=== PATIENT | male | born 1990 | race Caucasian/White ===

== ENCOUNTER 2024-07-08 19:00 | Emergency (ER) | payer MEDICAID ==
[~2024-07-08] VITALS: Ht 170.2 cm; Wt 55.8 kg
[~2024-07-08 19:00] MED LIST: NO HOME MEDS
[2024-07-08 19:03] VITALS: O2SAT 99
[2024-07-08 21:05] VITALS: BP 116/74; PULSE 77; RESP 16; TEMP 98.2
--- NOTE | 2024-07-08 21:39 | Physician Documentation ---
History of Present Illness ~ Chief Complaint: Back Pain Stated Complaint: BACK PAIN Time Seen by MD: 20:57 Primary Medical Doctor: None HPI This is a 34-year-old male who presents with four days of thoracolumbar back pain radiating across his entire mid back this with sitting up and movement, patient reports no fever, no new weakness or numbness in extremities, no saddle paresthesias, no loss of bowel or bladder control. Patient reports no history of IV drug use, tuberculosis, or cancer. Patient reports no other acute symptoms or concerns. Medication Reconciliation Allergies: Coded Allergies: Penicillins (Verified Allergy, Unknown, 08/15/13) Scheduled Ibuprofen (Ibuprofen), 1 TAB PO Q8H Miscellaneous Medications Home Med List (No Home Medications), (Reported) Past Medical History Past Medical History: Schizophrenia Past Surgical History: no surgical history Alcohol Use: None Drug Use: marijuana, methamphetamine Lives with: Alone Lives In: Homeless Review of Systems ROS Thoracolumbar back pain as stated above in the HPI, otherwise all systems are reviewed and negative. Physical Exam Physical Exam Vital Signs: Temperature: 98.2, Source: Oral, Heart Rate: 77, Respiratory Rate: 16, BP: 116/74, Pulse Oximetry: 99, Weight: 55.800 Oxygen Flow Rate: 0 Physical Exam VITALS: Reviewed and as above. GENERAL: Alert, nontoxic appearing, no apparent distress. RESPIRATORY: No increased work of breathing, no respiratory distress, speaking in full clear sentences BACK: No CVA tenderness to percussion, the thoracolumbar back is mildly tender to palpation without focal central spinal tenderness, no step-offs, no crepitus Progress Results/Orders Results/Orders Completed Orders - DES KLINE TELEMETRY RN Ibuprofen Tablet (Motrin Tablet) (07/08/24 21:40) Vital Signs 07/08/24 07/08/24 19:03 21:05 Temp 98.2 98.2 Pulse 90 77 Resp 18 16 B/P (MAP) 113/80 116/74 (88) Pulse Ox 99 O2 Flow Rate 0 0 Medical Decision Making Findings This 34-year-old male presented with four days of thoracolumbar back pain w ithout known injury, it was reassuring patient reported no red flags including no history of IV drug use, no history of cancer no history of tuberculosis, and no recent history of fever along with no new weakness or numbness in extremities, no loss of bowel or bladder control, and no saddle paresthesias. Patient offered and declined Toradol injection and lidocaine patches for back pain, patient was medicated with ibuprofen for back pain. Remainder of physical exam was benign patient was otherwise well-appearing, hemodynamically stable and appropriate for outpatient follow up. Return to care precautions were discussed with the patient who verbalized understanding. Differential Dx:Considerations: Include: DJD, Fracture, Musculoskeletal pain, Pyelonephritis, Strain, Urinary obstruction, Urolithiasis, Other (Cauda equina) Departure Disposition: HOME / SELF CARE / HOMELESS Impression: Primary Impression: Thoracolumbar back pain Condition: Improved Discharge Instructions: Acute Back Pain, Adult Additional Instructions: Please use the prescribed ibuprofen as needed for back pain, warm compresses may help, stretching may help. Please follow up with your primary care provider in the next few days. Please return to the emergency department for any new or worsening concerning symptoms including but not limited to new weakness or numbness in your legs, or loss of bowel or bladder control. Referrals: NO PRIMARY CARE PROVIDER (PCP) Prescriptions Ibuprofen (Ibuprofen) 800 Mg Tablet 1 TAB PO Q8H for pain for 10 Days, #30 TAB 0 Refills Prov: DES KLINE 07/08/24 Education Educated: Patient Educated regarding: diagnosis, treatment, prognosis, need for follow up Signature Scribe Signature: No scribe Attestation: The note accurately reflects work and decisions made by me.ARGELIA Scales 07/09/24 01:24 DES KLINE July 08, 2024 21:39
[2024-07-08] MEDS ORDERED: IBUP-1986 PO (21:40)
[2024-07-08] MEDS: ibuprofen tablet 400 MG TABLET PO ONE (22:03)
== END 2024-07-08 22:09 | disposition home or self-care (01) ==
LOC: ER 19:00
DX: M54.6 Pain in thoracic spine (principal); F20.9 Schizophrenia, unspecified; Z88.0 Allergy status to penicillin
CPT/HCPCS: 99283

== ENCOUNTER 2024-07-10 19:57 | Emergency (ER) | payer MEDICAID ==
[~2024-07-10] VITALS: Ht 170.2 cm; Wt 58.3 kg
[~2024-07-10 19:57] MED LIST changes: +IBUP-1986 PO
[2024-07-10 20:18] VITALS: BP 145/69; PULSE 98; RESP 15; TEMP 97.6; O2SAT 98
--- NOTE | 2024-07-10 22:58 | RADIOLOGY REPORT ---
Clinical History ANKLE PAIN RIGHT, REDNESS SWELLING, INFECTION ? Comparison None Technique: right ankle 4 views Without Contrast MYRON INTERIANO, [id number] Findings: Bones: No displaced fracture. Soft tissues: No swelling. No foreign body Joints: Visualized joints are within normal limits. Impression: 1. No acute fracture or dislocation. This report was electronically signed by Emery Osullivan MD on 07/10/2024 10:54:25 PM.
--- NOTE | 2024-07-11 00:28 | Physician Documentation ---
History of Present Illness ~ Chief Complaint: Ankle pain Stated Complaint: FOOT SWELLING Time Seen by MD: 00:24 Primary Medical Doctor: None HPI This 34-year-old male who presents with pain and swelling to his right ankle, patient reports he does not know if he injured it, patient reports pain has been present for approximately last three days, patient reports pain is worse when walking around. Patient is able to walk and bear weight on ankle though it is painful. Tetanus witin 5 years: Yes Medication Reconciliation Allergies: Coded Allergies: Penicillins (Verified Allergy, Unknown, 07/10/24) Scheduled Ibuprofen (Ibuprofen), 1 TAB PO Q8H Miscellaneous Medications Home Med List (No Home Medications), (Reported) Past Medical History Past Medical History: Schizophrenia Past Surgical History: no surgical history Alcohol Use: None Drug Use: marijuana, methamphetamine Lives with: Alone Lives In: Homeless Review of Systems ROS Right ankle pain as stated above in the HPI, otherwise all systems are reviewed and negative. Physical Exam Vital Signs: Temperature: 97.6, Source: Temporal, Heart Rate: 98, Respiratory Rate: 15, BP: 145/69, Pulse Oximetry: 98, Weight: 58.300 Physical Exam VITALS: Reviewed and as above. GENERAL: Alert, nontoxic appearing, no apparent distress. RESPIRATORY: No increased work of breathing, no respiratory distress, speaking in full clear sentences MUSCULOSKELETAL: Lateral and medial aspects of right ankle mildly swollen and tender to palpation, minimal erythema, no ecchymosis, no obvious deformity, pedal pulse intact, brisk capillary refill distal to injury SKIN: Abrasions to the skin of right ankle without induration, fluctuance or evidence of infection Progress Results/Orders Results/Orders Orders - DES KLINE Ortho Orders (07/11/24 00:28) Completed Orders - DES KLINE Ibuprofen Tablet (Motrin Tablet) (07/11/24 00:30) Vital Signs 07/10/24 20:18 Temp 97.6 Pulse 98 Resp 15 B/P (MAP) 145/69 Pulse Ox 98 EKG/XRAY/CT/US/VASC/MRI Bone/Soft Tissue X-Ray (Ext.) : Additional Comment Exam: ANKLE, COMPLETE(3VW MIN) Clinical History ANKLE PAIN RIGHT, REDNESS SWELLING, INFECTION ? Comparison None Technique: right ankle 4 views Without Contrast MYRON NITERIANO, [id number] Findings: Bones: No displaced fracture. Soft tissues: No swelling. No foreign body Joints: Visualized joints are within normal limits. Impression: 1. No acute fracture or dislocation. This report was electronically signed by Emery Garza MD on 07/10/2024 10:54:25 PM. Electronically Signed by:EMERY GARZA MD Date & Time: 07/10/242257 Dictated by: EMERY GARZA MD Dictation date and time: 07/10/242257 I have reviewed and agree with the radiology report. I have reviewed and interpreted the imaging as: No fracture or dislocation Medical Decision Making Findings This 34-year-old male presented with three days of right ankle pain and swelling without known injury to the area, pain was worse with ambulation though patient is able to ambulate and bear weight. While there were some abrasions and erythema to the area it was not significant and there was not evidence of cellulitis or infection, believe patient may have sustained a soft tissue injury to the ankle as x-ray did not demonstrate any acute fracture or dislocation. It was reassuring the foot was neurovascularly intact. Remainder of physical exam was benign patient is appropriate for outpatient follow up. Patient is to follow up with [facility] for re-evaluation and possible referral to an orthopedist. Patient recently seen for low back pain and prescribed ibuprofen therefore another prescription will not be indicated as patient can use this prescribed ibuprofen for his ankle pain. Patient will be placed on crutches and provided home care instructions for RICE therapy. Patient provided follow up instructions and return to care precautions which he verbalized understanding of. General Diff Dx:Considerations: Include: Contusion, Fracture, Hematoma, Laceration, Neurovascular injury, Sprain, Ulcer, Other (Cellulitis, abscess) Ankle Diff Dx:Considerations: Include: Arthritis, Gout, Septic Departure Time of Disposition: 00:26 Disposition: 01 HOME / SELF CARE / HOMELESS Impression: Primary Impression: Ankle pain Qualified Codes: M25.571 - Pain in right ankle and joints of right foot Condition: Improved Discharge Instructions: Ankle Pain, RICE Therapy for Routine Care of Injuries, [id number] Additional Instructions: Please use the provided crutches to rest your ankle, see the home care ins tructions for care of your injured ankle. Please use your previously prescribed high-dose ibuprofen as needed for pain. Please keep the abrasions to your ankle clean and dry prevent an infection from forming. Please follow up with your primary care provider or [facility] in the next few days. Please return to the emergency department for any new or worsening concerning symptoms including but not limited to worsening pain and swelling to your ankle, or if you develop a fever. Referrals: NO PRIMARY CARE PROVIDER (PCP) Education Educated: Patient Educated regarding: diagnosis, treatment, prognosis, need for follow up Signature Scribe Signature: No scribe Attestation: The note accurately reflects work and decisions made by me.ARGELIA Scales 07/11/24 03:09 DES KLINE July 11, 2024 00:28
[2024-07-11] MEDS: ibuprofen tablet 400 MG TABLET PO ONE (00:57)
== END 2024-07-11 01:00 | disposition home or self-care (01) ==
LOC: ER 19:57
DX: M25.571 Pain in right ankle and joints of right foot (principal); F12.90 Cannabis use, unspecified, uncomplicated; F15.90 Other stimulant use, unspecified, uncomplicated; F20.9 Schizophrenia, unspecified; Z88.0 Allergy status to penicillin
CPT/HCPCS: 73610; 99283

== ENCOUNTER 2024-07-20 11:10 | Emergency (ER) | payer MEDICAID ==
[~2024-07-20] VITALS: Ht 170.2 cm; Wt 45.9 kg
[2024-07-20 11:13] VITALS: BP 118/83; PULSE 84; RESP 15; TEMP 98.4; O2SAT 98
--- NOTE | 2024-07-20 12:03 | Physician Documentation ---
History of Present Illness ~ Chief Complaint: See Chief Complaint Stated Complaint: PAIN IN FEET Time Seen by MD: 11:47 Primary Medical Doctor: None HPI 34-year-old male reports a chief complaint of feet pain and asking for a bus pass. Patient states it cold I am tired of walking and my feet her and states he would like to get a bus pass to [place] ankle it. Patient states that he denies fevers or chills. Patient states he is just tired of walking we would like a pass either via taxi or a bus. No other complaints at this time Tetanus witin 5 years: Yes Medication Reconciliation Allergies: Coded Allergies: Penicillins (Verified Allergy, Unknown, 07/10/24) Scheduled Ibuprofen (Ibuprofen), 1 TAB PO Q8H Miscellaneous Medications Home Med List (No Home Medications), (Reported) Past Medical History Past Medical History: Schizophrenia Past Surgical History: no surgical history Alcohol Use: None Drug Use: marijuana, methamphetamine Lives with: Alone Lives In: Homeless Physical Exam Vital Signs: Temperature: 98.4, Source: Temporal, Heart Rate: 84, Respiratory Rate: 15, BP: 118/83, Pulse Oximetry: 98, Weight: 45.900 Physical Exam General: Well developed, well nourished, no distress. HEENT: Atraumatic, normal conjunctiva, moist mucous membranes. Neck: Full range of motion, supple. Respiratory: Lungs clear, no respiratory distress. Chest: No accessory muscle use, nontender. Cardiovascular: Regular rate and rhythm. Gastrointestinal: Soft, nontender, nondistended. Bowel sounds present. Extremities: Normal range of motion, nontender, normal capillary refill, no deformity. Back: No midline tenderness, no CVA tenderness. Neurologic: Oriented x4. Distal gross motor and sensory intact all four extremities. Moves all 4 extremities spontaneously. Psychiatric: Normal mood and affect. Skin: Normal color, warm and dry. No edema, no ecchymosis Progress Results/Orders Results/Orders Vital Signs 07/20/24 11:13 Temp 98.4 Pulse 84 Resp 15 B/P (MAP) 118/83 Pulse Ox 98 Medical Decision Making Additional info obtained from: old records Findings After detailed discussion and joint medical decision-making, diagnostic and imaging results were discussed with the patient. At this time patient eloped prior to re-evaluation by myself. I did discuss with the patient initially that we can not give him a bus faster [place] and after a left the room patient eloped. Status patient was unknown prior to patient eloping and General Diff Dx:Considerations: Include: Other (Foot pain, homelessness, general medical exam) Departure Disposition: 07 LEFT AWOL/ELOPED Impression: Primary Impression: Foot pain, bilateral Referrals: NO PRIMARY CARE PROVIDER (PCP) Education Educated: Patient Educated regarding: diagnosis, treatment Signature Scribe Signature: None used Attestation: Scribed for Erick Fajardo Pa by Erick SMITH . 07/20/24 12:02 ERICK FAJARDO July 20, 2024 12:03
== END 2024-07-20 11:53 | disposition left against medical advice (07) ==
LOC: ER 11:11
DX: M79.672 Pain in left foot (principal); M79.671 Pain in right foot; F20.9 Schizophrenia, unspecified; F12.90 Cannabis use, unspecified, uncomplicated; F15.90 Other stimulant use, unspecified, uncomplicated; Z88.0 Allergy status to penicillin; Z59.00 Homelessness unspecified; Z60.2 Problems related to living alone
CPT/HCPCS: 99281

== ENCOUNTER 2024-07-21 16:06 | Emergency (ER) | payer MEDICAID ==
[~2024-07-21] VITALS: Ht 170.2 cm; Wt 57.8 kg
[2024-07-21 16:14] VITALS: BP 119/84; PULSE 79; RESP 16; O2SAT 99
--- NOTE | 2024-07-21 18:01 | Physician Documentation ---
History of Present Illness ~ Chief Complaint: Foot pain Stated Complaint: FEET HURT Time Seen by MD: 17:35 Primary Medical Doctor: Paul HPI 34-year-old male reports ER with chief complaint of bilateral foot pain. Patient states that he is tired of walking and states that he he is having foot pain. Denies blisters. Patient was wearing old socks and states he would like a new socks. Denies active drainage or discharge. No other complaints at this time Tetanus witin 5 years: Yes Medication Reconciliation Allergies: Coded Allergies: Penicillins (Verified Allergy, Unknown, 07/10/24) Scheduled Ibuprofen (Ibuprofen), 1 TAB PO Q8H Miscellaneous Medications Home Med List (No Home Medications), (Reported) Past Medical History Past Medical History: Schizophrenia Past Surgical History: no surgical history Alcohol Use: None Drug Use: marijuana, methamphetamine Lives with: Alone Lives In: Homeless Physical Exam Vital Signs: Temperature: 98.0, Source: Temporal, Heart Rate: 79, Respiratory Rate: 16, BP: 119/84, Pulse Oximetry: 99, Weight: 57.800 Oxygen Flow Rate: 0 Physical Exam General: Well developed, well nourished, no distress. HEENT: Atraumatic, normal conjunctiva, moist mucous membranes. Neck: Full range of motion, supple. Respiratory: Lungs clear, no respiratory distress. Chest: No accessory muscle use, nontender. Cardiovascular: Regular rate and rhythm. Gastrointestinal: Soft, nontender, nondistended. Bowel sounds present. Extremities: Normal range of motion, nontender, normal capillary refill, no deformity. Back: No midline tenderness, no CVA tenderness. Neurologic: Oriented x4. Distal gross motor and sensory intact all four extremities. Moves all 4 extremities spontaneously. Psychiatric: Normal mood and affect. Skin: Normal color, warm and dry. No edema, no ecchymosis Progress Results/Orders Results/Orders Vital Signs 07/21/24 16:14 Temp 98.0 Pulse 79 Resp 16 B/P (MAP) 119/84 Pulse Ox 99 O2 Flow Rate 0 Medical Decision Making Additional info obtained from: old records Findings After detailed discussion and joint medical decision-making, diagnostic and imaging results were discussed with the patient. At this time patient will be given his socks but there was no evidence of any blisters or signs of infection. Patient will be advised to follow up with the primary care. ER precautions were given. Patient is stable upon discharge. All patient questions answered to satisfaction General Diff Dx:Considerations: Include: Other (Fracture, contusion, strain) Departure Disposition: HOME / SELF CARE / HOMELESS Impression: Primary Impression: Foot pain Additional Impression: Schizophrenia Condition: Stable Discharge Instructions: Strain, Muscle Referrals: NO PRIMARY CARE PROVIDER (PCP) Education Educated: Patient Educated regarding: diagnosis, treatment Signature Scribe Signature: None used Attestation: Scribed for Lois Fajardo Pa by Lois SMITH . 07/21/24 18:03 LOIS FAJARDO July 21, 2024 18:01
[2024-07-21 18:10] VITALS: TEMP 98
== END 2024-07-21 18:13 | disposition home or self-care (01) ==
LOC: ER 16:07
DX: M79.672 Pain in left foot (principal); M79.671 Pain in right foot; F20.9 Schizophrenia, unspecified; F12.90 Cannabis use, unspecified, uncomplicated; F15.90 Other stimulant use, unspecified, uncomplicated; Z88.0 Allergy status to penicillin; Z79.899 Other long term (current) drug therapy; Z60.2 Problems related to living alone; Z59.00 Homelessness unspecified
CPT/HCPCS: 99281

== ENCOUNTER → 2024-07-21 | Emergency (ER) | payer MEDICAID ==
[~2024-07-21] VITALS: Ht 170.2 cm; Wt 62.3 kg
[2024-07-21 03:17] VITALS: BP 118/71; PULSE 71; RESP 16; TEMP 97.8; O2SAT 97
== END | disposition left against medical advice (07) ==
LOC: ER 03:13
DX: M79.673 Pain in unspecified foot (principal); M54.9 Dorsalgia, unspecified; Z53.21 Procedure and treatment not carried out due to patient leaving prior to being seen by health care provider; Z88.0 Allergy status to penicillin

== ENCOUNTER 2024-09-17 23:32 | Emergency (ER) | payer MEDICAID ==
[~2024-09-17] VITALS: Ht 172.7 cm; Wt 59.5 kg
--- NOTE | 2024-09-17 23:37 | Physician Documentation ---
History of Present Illness ~ Stated Complaint: BACK PAIN Time Seen by MD: 23:36 Primary Medical Doctor: None HPI Patient presents to the emergency room with chief complaint of back pain. He denies history of back pain but he has been seen here previously for this. He denies any falls or injuries. It appears comfortable. History is limited as patient is not the best communicator and mumbles a lot. No bladder or bowel incontinence reported Medication Reconciliation Allergies: Coded Allergies: Penicillins (Verified Allergy, Unknown, 07/10/24) quetiapine (Verified Allergy, Unknown, HIVES, 09/17/24) Scheduled Ibuprofen (Ibuprofen), 1 TAB PO Q8H Ibuprofen* (Motrin*), 800 MG PO Q8H Scheduled PRN Acetaminophen (Tylenol Extra Strength), 2 TAB PO Q6H PRN PRN for pain or fever Miscellaneous Medications Home Med List (No Home Medications), (Reported) Past Medical History Past Medical History: Schizophrenia Past Surgical History: no surgical history Alcohol Use: None Drug Use: marijuana, methamphetamine Lives with: Alone Lives In: Homeless Review of Systems ROS All review of systems negative except as per HPI Physical Exam Physical Exam Physical Exam General: Patient is awake, alert, oriented x4 in no acute distress Head: Normocephalic and atraumatic. Eyes: Conjunctival normal. EOMI. PERRL. ENT: Mucous membranes moist. Neck: Supple, trachea is midline. Chest: Clear to auscultation bilaterally without rales, rhonchi, or wheezes. There is no accessory muscle use or retractions. Cardiac: RRR without murmurs, gallops, or rubs. Back: No midline spinal or CVA tenderness. Skin: Warm and dry with no significant rash appreciated. Neuro: Cranial nerves II-XII grossly intact. No focal neuro deficits. Patient ambulating without difficulty. Progress Results/Orders Results/Orders Completed Orders - CHANDLER LANDAVERDE MD Ibuprofen Tablet (Motrin Tablet) (09/17/24 23:50) Acetaminophen 325mg Tablet (Tylenol Tabl (09/17/24 23:50) Medications Received in ER Medications (Trade) Dose Ordered Sig/Dann Route PRN Reason Start Time Stop Time Status Last Admin Dose Admin (Motrin tablet) 800 mg ONCE ONCE PO 09/17/24 23:50 09/17/24 23:52 DC 09/18/24 00:36 800 MG (Tylenol tablet) 650 mg ONCE ONCE PO 09/17/24 23:50 09/17/24 23:52 DC 09/18/24 00:35 650 MG Vital Signs 09/17/24 23:33 Temp 97.7 Pulse 81 Resp 16 B/P (MAP) 112/76 Pulse Ox 97 Medical Decision Making Findings Patient presents to the emergency room with back pain. Differentials include but are not limited to musculoskeletal pain, POTS, epidural abscess, aortic pathology. Neurologic exam is reassuring and patient appears comfortable I do not feel emergent labs or imaging is necessary. Departure Disposition: HOME / SELF CARE / HOMELESS Impression: Primary Impression: Back problem Condition: Stable Discharge Instructions: Acute Back Pain, Adult Referrals: NO PRIMARY CARE PROVIDER (PCP) Prescriptions Ibuprofen* (Motrin*) 400 Mg Tablet 800 MG PO Q8H, #30 TAB Prov: CHANDLER LANDAVERDE MD 09/17/24 Acetaminophen (Tylenol Extra Strength) 500 Mg Tablet 2 TAB PO Q6H PRN PRN for pain or fever for 3 Days, #30 TAB Prov: CHANDLER LANDAVERDE MD 09/17/24 Education Educated: Patient Educated regarding: diagnosis, treatment, need for follow up Signature Scribe Signature: No scribe Attestation: The note accurately reflects work and decisions made by me.Chandler Landaverde MD 09/17/24 23:50 CHANDLER LANDAVERDE MD Sep 17, 2024 23:37
[2024-09-17] MEDS ORDERED: IBUP-1984 PO (23:50)
[2024-09-17] MEDS ORDERED: ACET-2615 PO (23:50)
[2024-09-18] MEDS: ibuprofen tablet 400 MG TABLET PO ONE (00:36)
[2024-09-18 00:46] VITALS: BP 121/74; PULSE 72; RESP 10
[2024-09-18 00:48] VITALS: TEMP 97.7; O2SAT 96
[2024-09-19] MEDS ORDERED: IBUP-1985 PO (23:43)
== END 2024-09-18 00:50 | disposition home or self-care (01) ==
LOC: ER 23:32
DX: M54.9 Dorsalgia, unspecified (principal); F20.9 Schizophrenia, unspecified; F12.90 Cannabis use, unspecified, uncomplicated; F15.90 Other stimulant use, unspecified, uncomplicated; Z88.0 Allergy status to penicillin
CPT/HCPCS: 99283

== ENCOUNTER 2024-09-19 22:08 | Emergency (ER) | payer MEDICAID ==
[~2024-09-19] VITALS: Ht 170.2 cm; Wt 53.6 kg
[~2024-09-19 22:08] MED LIST changes: +ACET-2615 PO; +IBUP-1984 PO
[2024-09-19 22:12] VITALS: TEMP 98
[2024-09-19] MEDS ORDERED: IBUP-1985 PO (23:43)
--- NOTE | 2024-09-19 23:44 | Physician Documentation ---
History of Present Illness ~ Chief Complaint: Back Pain Stated Complaint: BACK PAIN Time Seen by MD: 23:12 Primary Medical Doctor: None HPI Patient is seen today with complaints of low back pain. Patient denies any chest pain or shortness of breath or abdominal pain or nausea, vomiting, diarrhea or fevers or chills or body aches. Patient states he is homeless and has no other concern or complaint at this time. Medication Reconciliation Allergies: Coded Allergies: Penicillins (Verified Allergy, Unknown, 09/19/24) quetiapine (Verified Allergy, Unknown, HIVES, 09/19/24) Scheduled Ibuprofen (Ibuprofen), 1 TAB PO Q8H Ibuprofen* (Motrin*), 800 MG PO Q8H Scheduled PRN Acetaminophen (Tylenol Extra Strength), 2 TAB PO Q6H PRN PRN for pain or fever Miscellaneous Medications Home Med List (No Home Medications), (Reported) Past Medical History Past Medical History: Schizophrenia Past Surgical History: no surgical history Alcohol Use: None Drug Use: marijuana, methamphetamine Lives with: Alone Lives In: Homeless Review of Systems Constitutional: Denies: chills, fever, weakness Eyes: Denies: pain, blurred vision ENT: Denies: ear pain, nose pain, throat pain, mouth pain Respiratory: Denies: cough, shortness of breath Cardiovascular: Denies: chest pain, palpitations Gastrointestinal: Denies: abdominal pain, nausea, vomiting Genitourinary: Denies: burning, dysuria Male Genitalia: Denies: penile discharge, testicular pain Neurological: Denies: headache, dizziness Musculoskeletal: Denies: pain, swelling Integumentary: Denies: rash, lesions Allergic/Immunologic: Denies: hives, itching Hematologic/Lymphatic: Denies: no symptoms reported Psychiatric: Denies: depression, anxiety Physical Exam Physical Exam Vital Signs: Temperature: 98.0, Source: Temporal, Heart Rate: 101, Respiratory Rate: 16, BP: 121/84, Pulse Oximetry: 98, Weight: 53.600 Oxygen Flow Rate: 0 Physical Exam General: Awake and Alert, no acute distress. HEENT: Conjunctiva pink, Sclera clear, Mucus Membranes moist. Neck: Supple without masses and tenderness. Resp: Unlabored. Lungs clear to auscultation bilaterally. Heart: Regular Rate and rhythm, normal S1 and S2 without murmur, rub or gallop. Musculoskeletal: Patient has decreased range of motion of the lumbar spine in all planes of motion. Patient is neurovascularly intact distally of bilateral lower extremities. Motor function and strength intact distally. Extremities: No cyanosis,clubbing or edema. Skin: Warm and Dry. Progress Results/Orders Results/Orders Vital Signs 09/19/24 22:12 Temp 98.0 Pulse 101 Resp 16 B/P (MAP) 121/84 Pulse Ox 98 O2 Flow Rate 0 Medical Decision Making Findings Patient is seen today with complaints of low back pain. Patient denies any chest pain or shortness of breath or abdominal pain or nausea, vomiting, diarrhea or fevers or chills or body aches. Patient states he is homeless and has no other concern or complaint at this time. Patient declined Toradol injection today. Patient was given ibuprofen 600 mg one tab by mouth in the ED today. Prescription of ibuprofen sent to patient's pharmacy. Patient will follow up with primary care in 3-5 days if no better or as needed sooner for referral to physical therapy. Patient will return to ED with any worsening, concerning or changing symptoms. Departure Disposition: 01 HOME / SELF CARE / HOMELESS Impression: Primary Impression: Low back pain Qualified Codes: M54.50 - Low back pain, unspecified; G89.29 - Other chronic pain Condition: Improved Discharge Instructions: Acute Back Pain, Adult Additional Instructions: Patient declined Toradol injection today. Patient was given ibuprofen 600 mg one tab by mouth in the ED today. Prescription of ibuprofen sent to patient's pharmacy. Patient will follow up with primary care in 3-5 days if no better or as needed sooner for referral to physical therapy. Patient will return to ED with any worsening, concerning or changing symptoms. Referrals: NO PRIMARY CARE PROVIDER (PCP) Prescriptions Ibuprofen (Ibuprofen) 600 Mg Tablet 1 TAB PO Q8H for pain for 10 Days, #30 TAB 0 Refills with food Prov: MYRON BRITO 09/19/24 Signature Scribe Signature: No scribe Attestation: No scribe MYRON BRITO Sep 19, 2024 23:43
[2024-09-20 00:22] VITALS: BP 96/57; PULSE 82; RESP 16; O2SAT 98
== END 2024-09-20 00:26 | disposition home or self-care (01) ==
LOC: ER 22:09
DX: G89.29 Other chronic pain (principal); M54.50 Low back pain, unspecified; F20.9 Schizophrenia, unspecified; F12.90 Cannabis use, unspecified, uncomplicated; F15.90 Other stimulant use, unspecified, uncomplicated; Z59.00 Homelessness unspecified; Z88.0 Allergy status to penicillin; Z79.899 Other long term (current) drug therapy; Z60.2 Problems related to living alone
CPT/HCPCS: 99282